=== PATIENT | male | born 1995 | race Caucasian/White ===

== ENCOUNTER 2017-03-10 18:36 | Emergency (ER) | payer OTHER ==
[~2017-03-10] VITALS: Ht 182.9 cm; Wt 88.6 kg
[2017-03-10 18:37] VITALS: BP 159/77
[2017-03-10] MEDS ORDERED: BACI500O74 EXT (19:48)
== END 2017-03-10 20:40 | disposition home or self-care (01) ==
LOC: M ED 18:36
DX: T22.011A Burn of unspecified degree of right forearm, initial encounter (principal); X10.2XXA Contact with fats and cooking oils, initial encounter; Y92.89 Other specified places as the place of occurrence of the external cause; Y93.89 Activity, other specified; Y99.8 Other external cause status

== ENCOUNTER 2017-05-21 13:39 | Inpatient (IN) | payer OTHER ==
[~2017-05-21] VITALS: Ht 182.9 cm; Wt 88.6 kg
[~2017-05-21 13:39] MED LIST: BACI500O74 EXT
[2017-05-21] MEDS ORDERED: VYVA60CA PO (13:55)
[2017-05-21 14:52] LABS: MEAN CORPUSCULAR HEMOGLOBIN 32.1 pg (27.0-33.0); MEAN CORPUSCULAR HGB CONC 36.4 g/dl (32.0-36.5); MEAN CORPUSCULAR VOLUME 88.2 fl (80.0-96.0); PLATELET COUNT, AUTOMATED 268 10^3/uL (150-450); RED CELL DISTRIBUTION WIDTH 12.2 % (11.5-14.5); WHITE BLOOD COUNT 9.2 10^3/uL (4.0-10.0)
[2017-05-21 15:10] LABS: METHADONE URINE NEGATIVE (NEGATIVE)
[2017-05-21 15:30] LABS: ALBUMIN 4.5 GM/DL (3.2-5.2); ALBUMIN/GLOBULIN RATIO 1.67 (1.00-1.93); ALKALINE PHOSPHATASE 88 U/L (45-117); ALT/SGPT 28 U/L (12-78); ANION GAP 7 MEQ/L (8-16); AST/SGOT 15 U/L (7-37); BILIRUBIN,DIRECT 0.1 MG/DL (0.0-0.2); BILIRUBIN,TOTAL 0.4 MG/DL (0.2-1.0); BLOOD UREA NITROGEN 12 MG/DL (7-18); CALCIUM LEVEL 9.1 MG/DL (8.5-10.1); CARBON DIOXIDE LEVEL 31 MEQ/L (21-32); CHLORIDE LEVEL 101 MEQ/L (98-107); CREATININE FOR GFR 1.14 MG/DL (0.70-1.30); GLOMERULAR FILTRATION RATE > 60.0 (>60); GLUCOSE, FASTING 86 MG/DL (70-105); POTASSIUM SERUM 3.7 MEQ/L (3.5-5.1); SODIUM LEVEL 139 MEQ/L (136-145); TOTAL PROTEIN 7.2 GM/DL (6.4-8.2)
[2017-05-21] MEDS ORDERED: NICOTINE 21MG/24HR 1 EA TRANSDERMAL TD ONE (16:45)
[2017-05-21] MEDS ORDERED: traZODone 50 MG TAB PO PRN (19:45)
[2017-05-21] MEDS ORDERED: ACETAMINOPHEN TAB 650MG DOSE (2X325MG) PO PRN (19:45)
[2017-05-21] MEDS ORDERED: MAALOX 30 ML SUSP *UDC PO PRN (19:45)
[2017-05-21] MEDS ORDERED: MOM 30ML SUSPENSION UDC PO PRN (19:45)
--- NOTE | 2017-05-22 08:59 | HPEPDOC ---
[facility] Medical History & Physical Date of Admission May 21, 2017 History and Physical PCP: [facility] ATTENDING: Dr. Alfredo Schuster HPI: 21yoM admitted to [facility] for unspecified depressive disorder, being medically examined today. No acute medical complaints today. Denies any fevers, chills, weakness, fatigue, ROUSE, CP, SOB, cough, palpitations, abdominal pain, N/V /D or changes in bowel or bladder habits. 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 ROS: As noted in HPI, otherwise 11pt ROS of systems reviewed and unremarkable. PE: GEN: 21yoM, appears stated age. Well-nourished, well developed. No acute distress. Alert and oriented x 3. Pleasant, interactive. HEENT: Normocephalic, atraumatic. Pupils are equal, round, and reactive to light. Extraocular movements are intact. No nystagmus appreciated. Sclera are nonicteric. Conjunctiva without injection. Nose midline. Nasal turbinates without bogginess. EACs both patent BL. TMs both visualized and nichols with good cone of light, no bulging or erythema. No facial asymmetry. Moist mucous membranes. Dentition fair. Pharynx pink and moist, no cobblestoning. Neck supple , trachea midline. No lymphadenopathy or thyromegaly appreciated. CHEST: Regular rate and rhythm, +S1, +S2 LUNGS: Clear to auscultation bilaterally. No wheezes, rales, or rhonchi. Breathing appears symmetric and easy. Patient is speaking in full sentences. No accessory muscle use. ABD: Round, soft, non-tender, non-distended. +Bowel sounds throughout. No rebound or guarding. No costovertebral angle tenderness. EXT: Pulses 2+ bilaterally dorsalis pedis and radial. No lower extremity edema appreciated. SKIN: [place], dry, warm. Capillary refill <2sec. No rashes. NEURO: Alert and oriented x 3. Cranial nerves III-XII are intact. No focal deficits appreciated. EKG: Pending. A&P: 21yoM admitted to [facility] for unspecified depressive disorder 1. Psych. Plan per Psychiatry. Obtain baseline EKG to assure the safety of psychiatric medications as they can prolong the QT interval. 2. Follow up with PCP on discharge. 3. Staff member Eduardo present throughout exam. Vital Signs Vital Signs Date Time Temp Pulse Resp B/P (MAP) Pulse Ox O2 Delivery O2 Flow Rate FiO2 05/21/17 19:31 98.2 55 16 135/78 (97) 99 Laboratory Data Labs 24H Laboratory Tests 2 05/21/17 14:24: Nucleated Red Blood Cells % (auto) 0.0, Anion Gap 7L, Glomerular Filtration Rate > 60.0, Calcium Level 9.1, Aspartate Amino Transf (AST/SGOT) 15, Alanine Aminotransferase (ALT/SGPT) 28, Alkaline Phosphatase 88, Total Bilirubin 0.4, Direct Bilirubin 0.1, Total Protein 7.2, Albumin 4.5, Albumin/Globulin Ratio 1.67, Thyroid Stimulating Hormone (TSH) 0.857, Salicylates Level < 1.7L, Acetaminophen Level < 2.0L, Ethyl Alcohol Level < 0.003 05/21/17 14:25: Urine Amphetamines Screen NEGATIVE, Urine Benzodiazepines Screen NEGATIVE, Urine Opiates Screen NEGATIVE, Urine Methadone Screen NEGATIVE, Urine Barbiturates Screen NEGATIVE, Urine Phencyclidine Screen NEGATIVE, Urine Cocaine Metabolite Screen NEGATIVE, Urine Cannabinoids Screen NEGATIVE CBC/BMP Laboratory Tests 05/21/17 14:24 Red Blood Count 5.42, Mean Corpuscular Volume 88.2, Mean Corpuscular Hemoglobin 32.1, Mean Corpuscular Hemoglobin Concent 36.4, Red Cell Distribution Width 12.2 Home Medications Scheduled (Vyvanse) 60 Mg Cap, 60 MG PO DAILY Allergies Coded Allergies: No Known Allergies (Unverified , 03/10/17) Shaneka Youngblood May 22, 2017 08:59
[2017-05-22] MEDS ORDERED: NICOTINE 21MG/24HR 1 EA TRANSDERMAL TD SCH (09:00)
[2017-05-22] MEDS ORDERED: VYVANSE 60 MG PO SCH (09:00)
[2017-05-22 11:43] VITALS: BP 138/69
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
[2017-05-23] MEDS ORDERED: INFLUENZA QUADRIVALENT PF VACCINE 0.5ML SYRINGE (90686) IM ONE (09:00)
== END 2017-05-22 13:30 | disposition home or self-care (01) | DRG 881 ==
LOC: M ED 13:39 → M ED INP 19:31 → M PSY 20:30
PROVIDERS: ADMIT Psychiatry & Neurology Psychiatry; ATTEND Psychiatry & Neurology Psychiatry
DX: F43.21 Adjustment disorder with depressed mood (principal); F90.9 Attention-deficit hyperactivity disorder, unspecified type; F17.200 Nicotine dependence, unspecified, uncomplicated; Z79.899 Other long term (current) drug therapy

== ENCOUNTER 2017-06-10 15:37 | Inpatient (IN) | payer OTHER ==
[~2017-06-10] VITALS: Ht 182.9 cm; Wt 90.0 kg
[~2017-06-10 15:37] MED LIST changes: +VYVA60CA PO
[2017-06-10] MEDS ORDERED: PROZ20CA11 PO (15:51)
[2017-06-10] MEDS ORDERED: NS 1,000 ML IV ONE ×3 (16:15→19:00)
[2017-06-10 16:23] LABS: BASO % 0.4 % (0.0-1.0); EOS # 0.1 10^3/uL (0.0-0.50); EOS % 0.5 % (0.0-3.0); IMMATURE GRANULOCYTE % 0.5 % (0-0); LYMPH % 21.1 % (24.0-44.0); MEAN CORPUSCULAR HEMOGLOBIN 31.6 pg (27.0-33.0); MEAN CORPUSCULAR HGB CONC 36.3 g/dl (32.0-36.5); MEAN CORPUSCULAR VOLUME 87.3 fl (80.0-96.0); MONO # 0.8 10^3/uL (0.0-0.8); MONO % 8.1 % (0.0-5.0); NEUTROPHILS # 6.4 10^3/uL (1.8-7.7); NEUTROPHILS % 69.4 % (36.0-66.0); PLATELET COUNT, AUTOMATED 287 10^3/uL (150-450); RED CELL DISTRIBUTION WIDTH 11.8 % (11.5-14.5); WHITE BLOOD COUNT 9.2 10^3/uL (4.0-10.0)
[2017-06-10 16:25] LABS: INR 0.95
[2017-06-10 16:27] LABS: VENOUS BASE EXCESS 1.4 (-2.0-2.0); VENOUS STANDARD HCO3 25.5 MEQ/L; VENOUS TOTAL CO2 27.6 MEQ/L (24.0-28.0)
[2017-06-10 16:36] LABS: ALBUMIN 4.1 GM/DL (3.2-5.2); ALBUMIN/GLOBULIN RATIO 1.32 (1.00-1.93); ALKALINE PHOSPHATASE 94 U/L (45-117); ALT/SGPT 27 U/L (12-78); ANION GAP 9 MEQ/L (8-16); AST/SGOT 11 U/L (7-37); BILIRUBIN,DIRECT < 0.1 MG/DL (0.0-0.2); BILIRUBIN,TOTAL 0.2 MG/DL (0.2-1.0); BLOOD UREA NITROGEN 15 MG/DL (7-18); CALCIUM LEVEL 9.3 MG/DL (8.5-10.1); CARBON DIOXIDE LEVEL 28 MEQ/L (21-32); CHLORIDE LEVEL 101 MEQ/L (98-107); CREATININE FOR GFR 1.11 MG/DL (0.70-1.30); GLOMERULAR FILTRATION RATE > 60.0 (>60); GLUCOSE, FASTING 106 MG/DL (70-105); POTASSIUM SERUM 3.6 MEQ/L (3.5-5.1); SODIUM LEVEL 138 MEQ/L (136-145); TOTAL PROTEIN 7.2 GM/DL (6.4-8.2)
[2017-06-10] MEDS ORDERED: CHARCOAL ACTIVATED LIQUID 25 GM/120 ML BTL PO ONE (16:45)
[2017-06-10] MEDS ORDERED: ONDANSETRON 4MG/2ML VIAL (J2405) IV ONE (18:30)
[2017-06-10 20:00] LABS: METHADONE URINE NEGATIVE (NEGATIVE)
[2017-06-10] MEDS ORDERED: MAALOX 30 ML SUSP *UDC PO PRN (21:15)
[2017-06-10] MEDS ORDERED: MOM 30ML SUSPENSION UDC PO PRN (21:15)
[2017-06-10] MEDS ORDERED: ACETAMINOPHEN TAB 650MG DOSE (2X325MG) PO PRN (21:15)
[2017-06-10] MEDS ORDERED: diphenhydrAMINE 50 MG CAP PO PRN (21:30)
[2017-06-10 22:35] VITALS: BP 122/63
--- NOTE | 2017-06-11 05:45 | ECGEPIP ---
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
[2017-06-11 06:40] VITALS: BP 111/53
--- NOTE | 2017-06-11 08:46 | HPEPDOC ---
[facility] Medical History & Physical Date of Admission Jun 10, 2017 History and Physical PCP: [facility] ATTENDING: Dr. Alfredo Schuster HPI: 21yoM admitted to [facility] for unspecified depressive disorder, being medically examined today. The patient was medically stabilized in the emergency department after taking approximately 20 Excedrin and 20 Benadryl. Poison control was consulted. The patient received IV fluids and charcoal in the emergency department. The patient states he noted some nausea and vomiting in the emergency department after taking the charcoal. Today he states he is feeling better. No acute medical complaints today. Denies any fevers, chills, weakness, fatigue , ROUSE, CP, SOB, cough, palpitations, abdominal pain, N/V/D or changes in bowel or bladder habits. PMHx: ADHD Depression Anxiety History of SI. 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 ROS: As noted in HPI, otherwise 11pt ROS of systems reviewed and unremarkable. PE: GEN: 21yoM, appears stated age. Well-nourished, well developed. No acute distress. Alert and oriented x 3. Pleasant, interactive. HEENT: Normocephalic, atraumatic. Pupils are equal, round, and reactive to light. Extraocular movements are intact. No nystagmus appreciated. Sclera are nonicteric. Conjunctiva without injection. Nose midline. Nasal turbinates without bogginess. EACs both patent BL. TMs both visualized and nichols with good cone of light, no bulging or erythema. No facial asymmetry. Moist mucous membranes. Dentition fair. Pharynx pink and moist, no cobblestoning. Neck supple , trachea midline. No lymphadenopathy or thyromegaly appreciated. CHEST: Regular rate and rhythm, +S1, +S2 LUNGS: Clear to auscultation bilaterally. No wheezes, rales, or rhonchi. Breathing appears symmetric and easy. Patient is speaking in full sentences. No accessory muscle use. ABD: Round, soft, non-tender, non-distended. +Bowel sounds throughout. No rebound or guarding. No costovertebral angle tenderness. EXT: Pulses 2+ bilaterally dorsalis pedis and radial. No lower extremity edema appreciated. SKIN: [place], dry, warm. Capillary refill <2sec. No rashes. NEURO: Alert and oriented x 3. Cranial nerves III-XII are intact. No focal deficits appreciated. EK06/10/17 SINUS RHYTHM INCOMPLETE RIGHT BUNDLE BRANCH BLOCK NO PRIORS FOR COMPARISON A&P: 21yoM admitted to [facility] for unspecified depressive disorder 1. Psych. Plan per Psychiatry. EKG on file. 2. Follow up with PCP on discharge. 3. Staff member Maurice present throughout exam. Vital Signs Vital Signs Date Time Temp Pulse Resp B/P (MAP) Pulse Ox O2 Delivery O2 Flow Rate FiO2 06/11/17 06:40 98.7 54 12 111/53 (72) 06/10/17 22:35 97 Room Air Laboratory Data Labs 24H Laboratory Tests 2 06/10/17 15:54: Immature Granulocyte % (Auto) 0.5H, White Blood Count 9.2, Red Blood Count 5.50 , Hemoglobin 17.4, Hematocrit 48.0, Mean Corpuscular Volume 87.3, Mean Corpuscular Hemoglobin 31.6, Mean Corpuscular Hemoglobin Concent 36.3, Red Cell Distribution Width 11.8, Platelet Count 287, Neutrophils (%) (Auto) 69.4H, Lymphocytes (%) (Auto) 21.1L, Monocytes (%) (Auto) 8.1H, Eosinophils (%) (Auto) 0.5, Basophils (%) (Auto) 0.4, Neutrophils # (Auto) 6.4, Lymphocytes # (Auto) 2.0, Monocytes # (Auto) 0.8, Eosinophils # (Auto) 0.1, Basophils # (Auto) 0.0, Immature Granulocyte # (Auto) 0.1H, Nucleated Red Blood Cells % (auto) 0.0, Prothrombin Time 12.8, Prothromb Time International Ratio 0.95, Blood Gas Bicarbonate Standard 25.5, Venous Blood pH 7.414, Venous Blood Partial Pressure CO2 42.0, Venous Blood Partial Pressure O2 55.0H, Venous Blood Total Carbon Dioxide 27.6, Venous Blood HCO3 26.3, Venous Blood Oxygen Saturation 91.0H, Venous Blood Base Excess 1.4, Anion Gap 9, Glomerular Filtration Rate > 60.0, Calcium Level 9.3, Aspartate Amino Transf (AST/SGOT) 11, Alanine Aminotransferase (ALT/SGPT) 27, Alkaline Phosphatase 94, Total Bilirubin 0.2, Direct Bilirubin < 0.1, Total Creatine Kinase 102, Total Protein 7.2, Albumin 4.1, Albumin/Globulin Ratio 1.32, Thyroid Stimulating Hormone (TSH) 1.440, Salicylates Level 29.3, Acetaminophen Level 71.4H, Ethyl Alcohol Level < 0.003 06/10/17 16:22: Bedside Glucose (Misc Panel) 118H 06/10/17 17:48: Salicylates Level 29.9, Acetaminophen Level 63.6H 06/10/17 19:26: Urine Appearance CLOUDYH, Urine Color YELLOW, Urine pH 7.0, Urine Specific [place] 1.016, Urine Protein NEGATIVE, Urine Glucose (UA) NEGATIVE, Urine Ketones NEGATIVE, Urine Urobilinogen 0.2, Urine Bilirubin NEGATIVE, Urine Leukocyte Esterase NEGATIVE, Urine Blood NEGATIVE, Urine Nitrite NEGATIVE, Urine WBC (Auto) 1, Urine RBC (Auto) 0, Urine Hyaline Casts (Auto) 0, Urine Bacteria (Auto) NEGATIVE, Urine Squamous Epithelial Cells 0, Urine Amorphous Sediment MODERATEH, Urine Mucus (Auto) SMALL, Urine Sperm (Auto) , Urine Amphetamines Screen NEGATIVE, Urine Benzodiazepines Screen NEGATIVE, Urine Opiates Screen NEGATIVE, Urine Methadone Screen NEGATIVE, Urine Barbiturates Screen NEGATIVE, Urine Phencyclidine Screen NEGATIVE, Urine Cocaine Metabolite Screen NEGATIVE, Urine Cannabinoids Screen NEGATIVE 06/10/17 20:51: Salicylates Level 22.6, Acetaminophen Level 40.9H CBC/BMP Laboratory Tests 06/10/17 15:54 Red Blood Count 5.50, Mean Corpuscular Volume 87.3, Mean Corpuscular Hemoglobin 31.6, Mean Corpuscular Hemoglobin Concent 36.3, Red Cell Distribution Width 11.8 , Neutrophils (%) (Auto) 69.4 H, Lymphocytes (%) (Auto) 21.1 L, Monocytes (%) ( Auto) 8.1 H, Eosinophils (%) (Auto) 0.5, Basophils (%) (Auto) 0.4, Neutrophils # (Auto) 6.4, Lymphocytes # (Auto) 2.0, Monocytes # (Auto) 0.8, Eosinophils # ( Auto) 0.1, Basophils # (Auto) 0.0 Home Medications Scheduled (Vyvanse) 60 Mg Cap, 60 MG PO DAILY Fluoxetine HCl (Prozac) 20 Mg Cap, 20 MG PO DAILY Allergies Coded Allergies: No Known Allergies (Unverified , 03/10/17) Shaneka Youngblood Jun 11, 2017 08:46
[2017-06-11] MEDS ORDERED: NICOTINE 21MG/24HR 1 EA TRANSDERMAL TD SCH (09:00)
[2017-06-11] MEDS: FLUoxetine 20 MG CAP PO SCH (09:09)
[2017-06-11] MEDS: NICOTINE 21MG/24HR 1 EA TRANSDERMAL TD SCH (09:09)
[2017-06-11] MEDS ORDERED: IBUPROFEN 400 MG TAB PO PRN (13:45)
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
[2017-06-11 18:00] VITALS: BP 137/69
[2017-06-12 06:31] VITALS: BP 130/60
[2017-06-12] MEDS: NICOTINE 21MG/24HR 1 EA TRANSDERMAL TD SCH (08:34)
[2017-06-12] MEDS: FLUoxetine 20 MG CAP PO SCH (08:34)
[2017-06-12] MEDS ORDERED: INFLUENZA QUADRIVALENT PF VACCINE 0.5ML SYRINGE (90686) IM ONE (09:00)
--- NOTE | 2017-06-12 17:46 | MHIPNPDOC ---
[facility] Progress Note Progress Note DATE OF SERVICE: 06/12/17 HISTORY: "When I took the pills I was really scared. I didn't plan it. I went to the bathroom and grabbed them. I was very anxious before I took them. I was smoking and I usually don't smoke" HISTORY OF THE PRESENT ILLNESS: As per ED report: "Pt presented to ED after taking Benadryl and Tylenol, unknown amount as a SI attempt. Pt reported overdosed at home. Told his Dad after Pt started feeling the effects from overdosing. Dad called the [facility]. 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 Pt stated "lot of overwhelming; work, finances, GF (of 1 yr) broke up with him a month ago. Pt reported increased anxiety since relationship ended, came overwhelming, felt like had no choice. Pt stated fleeting +SI thoughts since relationship ended, but constant +SI thought for the last week. Pt stated" I have never been like this", believe their is an issue with the medications". VITAL SIGNS: See below. NEW TEST RESULTS: N/A CURRENT MEDICATIONS: See below. MENTAL STATUS EXAMINATION: Patient is a 21 year old male, who is alert, cooperative, good eye contact, fairly groomed with good hygiene Speech: Is Normal in rate, tone and volume. Language skills are Good. Thought processes including: Intact. Thought content: Anxious thoughts about his present situation. Abstract reasoning, and computation: Fair Description of associations: Good. Description of abnormal or psychotic thoughts: Denies SI/ HI, enies a/V hallucinations, denies thought delusions Judgment: Limited Insight: Limited Orientation: Oriented x 3 Recent and remote memory: Intact Attention span and concentration: Fair Language: Normal Fund of knowledge: Adequate Mood: Anxious Affect: Anxious DIAGNOSES: 1. Major Depressive Disorder, severe, single episode ASSESSMENT: Patient is very depressed amd anxious. he has been without his ADHd medication, Vyvance, but he has accepted to start using Strattera 40 mgs. Po QAM MANAGEMENT PLAN: Will continue with the same treatment plan. 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 TIME SPENT: 30 minutes. Vital Signs Vital Signs Date Time Temp Pulse Resp B/P (MAP) Pulse Ox O2 Delivery O2 Flow Rate FiO2 06/12/17 06:31 99.9 58 18 130/60 (83) 06/11/17 18:00 Room Air 06/10/17 22:35 97 Current Medications Current Medications Acetaminophen (Tylenol Tab) 650 mg Q6HP PRN PO HEADACHE or DISCOMFORT; Start 06/10/17 at 21:15; Stop 07/10/17 at 21:14; Status Cancel Al Hydrox/Mg Hydrox/Simethicone (Mylanta) 30 ml Q4HP PRN PO HEARTBURN/ INDIGESTION; Start 06/10/17 at 21:15; Stop 07/10/17 at 21:14 Diphenhydramine HCl (Benadryl) 50 mg Q6HP PRN PO ANXIETY/AGITATION; Start at 21:30; Stop 07/10/17 at 21:29 Fluoxetine HCl (PROzac) 20 mg DAILY PO Last administered on 06/12/17 08:34; Start 06/11/17 at 09:00; Stop 07/11/17 at 08:59 Home Med (Med Rec Complete!) ASDIRECTED XX ; Start 06/10/17 at 18:00; Stop at 18:00; Status DC Ibuprofen (Advil) 400 mg Q6HP PRN PO PAIN; Start 06/11/17 at 13:45; Stop at 13:44 Magnesium Hydroxide (Milk Of Magnesia) 30 ml DAILYPRN PRN PO CONSTIPATION; Start 06/10/17 at 21:15; Stop 07/10/17 at 21:14 Nicotine (Nicoderm Cq 21mg) 1 patch DAILY TD ; Start 06/11/17 at 09:00; Stop 06/11/17 at 09:00; Status DC Nicotine (Nicoderm Cq 21mg) 1 patch DAILY TD Last administered on 06/12/17 08 :34; Start 06/11/17 at 09:00; Stop 07/11/17 at 08:59 Trazodone HCl (Desyrel) 50 mg QHSP PRN PO INSOMNIA; Start 06/10/17 at 21:15; Stop 07/10/17 at 21:14 Allergies Coded Allergies: No Known Allergies (Unverified , 03/10/17) TEETEE MIRANDA MD Jun 12, 2017 17:46
[2017-06-12 18:15] VITALS: BP 131/88
[2017-06-12] MEDS: hydrOXYzine 25 MG TAB PO SCH ×2 (18:38→23:41)
[2017-06-12] MEDS: ATOMOXETINE HCL 40 MG CAP (STRATTERA) PO SCH (18:38)
[2017-06-13 06:46] VITALS: BP 116/56
[2017-06-13] MEDS: NICOTINE 21MG/24HR 1 EA TRANSDERMAL TD SCH (08:19)
[2017-06-13] MEDS: ATOMOXETINE HCL 40 MG CAP (STRATTERA) PO SCH (08:20)
[2017-06-13] MEDS: hydrOXYzine 25 MG TAB PO SCH ×4 (08:20→21:19)
[2017-06-13] MEDS: SERTRALINE HCL 50 MG TAB PO SCH (08:20)
[2017-06-13 20:40] VITALS: BP 123/61
[2017-06-14 06:38] VITALS: BP 115/58
[2017-06-14 06:41] VITALS: BP 115/58
[2017-06-14] MEDS: NICOTINE 21MG/24HR 1 EA TRANSDERMAL TD SCH (08:07)
[2017-06-14] MEDS: hydrOXYzine 25 MG TAB PO SCH ×4 (08:07→20:20)
[2017-06-14] MEDS: ATOMOXETINE HCL 40 MG CAP (STRATTERA) PO SCH (08:07)
[2017-06-14] MEDS: SERTRALINE HCL 50 MG TAB PO SCH (08:07)
--- NOTE | 2017-06-14 11:50 | MHIPN ---
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 MEDICATIONS: - Zoloft 50 mg by mouth in the morning - trazodone 50 mg by mouth at night as needed for insomnia SUBJECTIVE: "I am feeling about the same." OBJECTIVE: No major changes from yesterday. The patient continues depressed with sad and restricted facial expression and psychomotor retardation. The patient is interacting minimally with other patients and staff. There is no evidence of psychotic symptoms. No auditory or visual hallucinations or delusions. The patient appears to be tolerating the medication well. MENTAL STATUS EXAMINATION: The patient is dressed in [facility]. Patient is cooperative. Has fair eye contact. Speech is soft and monotone. Mood is anxious and depressed. Affect is restricted. There is no evidence of delusions or hallucinations. Memory, attention and concentration are fair. The patient is fully oriented. Associations are intact. Thinking is logical. Thought content is appropriate. The patient is able to contract for safety while in the hospital. Insight and judgment limited. DIAGNOSES: 1. Depression. 2. Suicidal ideation. PLAN: Continue Zoloft 50 mg by mouth in the morning. Continue trazodone 50 mg by mouth at night as needed for insomnia. Continue medication management, individual and group therapy.
--- NOTE | 2017-06-14 12:38 | MHIPNPDOC ---
[facility] Progress Note Progress Note DATE OF SERVICE: 06/14/17 HISTORY: "When I took the pills I was really scared. I didn't plan it. I went to the bathroom and grabbed them. I was very anxious before I took them. I was smoking and I usually don't smoke" HISTORY OF THE PRESENT ILLNESS: As per ED report: "Pt presented to ED after taking Benadryl and Tylenol, unknown amount as a SI attempt. Pt reported overdosed at home. Told his Dad after Pt started feeling the effects from overdosing. Dad called the [facility]. 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 Pt stated "lot of overwhelming; work, finances, GF (of 1 yr) broke up with him a month ago. Pt reported increased anxiety since relationship ended, came overwhelming, felt like had no choice. Pt stated fleeting +SI thoughts since relationship ended, but constant +SI thought for the last week. Pt stated" I have never been like this", believe their is an issue with the medications". Today, 06/14/17 says he felt a little sluggish today and he felt the same way yesterday. He says he feels "robotic" but he will take "robotic with no anxiety " over anxiety. VITAL SIGNS: See below. NEW TEST RESULTS: N/A CURRENT MEDICATIONS: See below. MENTAL STATUS EXAMINATION: Patient is a 21 year old male, who is alert, cooperative, good eye contact, fairly groomed with good hygiene Speech: Spontaneous and fluent Language skills are Good. Thought processes including: coherent Thought content: focused on his skilled nursing treatment Abstract reasoning, and computation: Fair Description of associations: Good. Description of abnormal or psychotic thoughts: Denies SI/ HI, denies a/V hallucinations, denies thought delusions Judgment: Limited Insight: Limited Orientation: Oriented x 3 Recent and remote memory: Intact Attention span and concentration: Good Language: Normal Fund of knowledge: Adequate Mood: Less anxious and less depressed Affect: Less anxious and less depressed DIAGNOSES: 1. Major Depressive Disorder, severe, single episode ASSESSMENT: Patient is less depressed an anxious. He has emotion "numbness', he doesn't feel sad, nor anxious and he was able to feel happiness yesterday when his family visited yesterday for Thanksgiving. MANAGEMENT PLAN: Will continue with the same treatment plan. Patient needs to go for a higher level of care, skilled nursing for Depression. Vital Signs Vital Signs Date Time Temp Pulse Resp B/P (MAP) Pulse Ox O2 Delivery O2 Flow Rate FiO2 06/14/17 06:41 98.7 66 14 115/58 (77) 06/13/17 06:46 Room Air 06/10/17 22:35 97 Current Medications Current Medications Acetaminophen (Tylenol Tab) 650 mg Q6HP PRN PO HEADACHE or DISCOMFORT; Start 06/10/17 at 21:15; Stop 07/10/17 at 21:14; Status Cancel Al Hydrox/Mg Hydrox/Simethicone (Mylanta) 30 ml Q4HP PRN PO HEARTBURN/ INDIGESTION; Start 06/10/17 at 21:15; Stop 07/10/17 at 21:14 Atomoxetine HCl (Strattera (Atomoxetine)) 40 mg QAM PO Last administered on 08:07; Start 06/12/17 at 09:00; Stop 07/12/17 at 08:59 Diphenhydramine HCl (Benadryl) 50 mg Q6HP PRN PO ANXIETY/AGITATION; Start at 21:30; Stop 07/10/17 at 21:29; Status Cancel Fluoxetine HCl (PROzac) 20 mg DAILY PO Last administered on 06/12/17 08:34; Start 06/11/17 at 09:00; Stop 06/12/17 at 18:11; Status DC Home Med (Med Rec Complete!) ASDIRECTED XX ; Start 06/10/17 at 18:00; Stop at 18:00; Status DC Hydroxyzine HCl (Atarax) 75 mg QID PO Last administered on 06/14/17 12:09; Start 06/12/17 at 17:00; Stop 07/12/17 at 16:59 Ibuprofen (Advil) 400 mg Q6HP PRN PO PAIN; Start 06/11/17 at 13:45; Stop at 13:44 Magnesium Hydroxide (Milk Of Magnesia) 30 ml DAILYPRN PRN PO CONSTIPATION; Start 06/10/17 at 21:15; Stop 07/10/17 at 21:14 Nicotine (Nicoderm Cq 21mg) 1 patch DAILY TD ; Start 06/11/17 at 09:00; Stop 06/11/17 at 09:00; Status DC Nicotine (Nicoderm Cq 21mg) 1 patch DAILY TD Last administered on 06/14/17 08 :07; Start 06/11/17 at 09:00; Stop 07/11/17 at 08:59 Sertraline HCl (Zoloft) 50 mg QAM PO Last administered on 06/14/17 08:07; Start 06/13/17 at 09:00; Stop 07/13/17 at 08:59 Trazodone HCl (Desyrel) 50 mg QHSP PRN PO INSOMNIA; Start 06/10/17 at 21:15; Stop 07/10/17 at 21:14 Allergies Coded Allergies: No Known Allergies (Unverified , 03/10/17) TEETEE MIRANDA MD Jun 14, 2017 12:38
[2017-06-14 18:00] VITALS: BP 137/64
[2017-06-15 06:36] VITALS: BP 123/56
[2017-06-15] MEDS: ATOMOXETINE HCL 40 MG CAP (STRATTERA) PO SCH (08:34)
[2017-06-15] MEDS: hydrOXYzine 25 MG TAB PO SCH ×4 (08:34→20:23)
[2017-06-15] MEDS: SERTRALINE HCL 50 MG TAB PO SCH (08:34)
[2017-06-15] MEDS: NICOTINE 21MG/24HR 1 EA TRANSDERMAL TD SCH (08:34)
[2017-06-15 18:00] VITALS: BP 140/64
[2017-06-16 06:43] VITALS: BP 140/63
[2017-06-16] MEDS: NICOTINE 21MG/24HR 1 EA TRANSDERMAL TD SCH (08:07)
[2017-06-16] MEDS: hydrOXYzine 25 MG TAB PO SCH ×4 (08:07→20:04)
[2017-06-16] MEDS: ATOMOXETINE HCL 40 MG CAP (STRATTERA) PO SCH (08:07)
[2017-06-16] MEDS: SERTRALINE HCL 50 MG TAB PO SCH (08:07)
[2017-06-16 18:00] VITALS: BP 141/63
[2017-06-16] MEDS: traZODone 50 MG TAB PO PRN (22:10)
[2017-06-17 06:00] VITALS: BP 120/65
[2017-06-17] MEDS: ATOMOXETINE HCL 40 MG CAP (STRATTERA) PO SCH (08:31)
[2017-06-17] MEDS: NICOTINE 21MG/24HR 1 EA TRANSDERMAL TD SCH (08:31)
[2017-06-17] MEDS: hydrOXYzine 25 MG TAB PO SCH ×4 (08:31→20:46)
[2017-06-17] MEDS: SERTRALINE HCL 50 MG TAB PO SCH (08:31)
[2017-06-17 18:10] VITALS: BP 136/79
--- NOTE | 2017-06-17 18:57 | MHIPNPDOC ---
[facility] Progress Note Progress Note DATE OF SERVICE: HISTORY: "When I took the pills I was really scared. I didn't plan it. I went to the bathroom and grabbed them. I was very anxious before I took them. I was smoking and I usually don't smoke" HISTORY OF THE PRESENT ILLNESS: As per ED report: "Pt presented to ED after taking Benadryl and Tylenol, unknown amount as a SI attempt. Pt reported overdosed at home. Told his Dad after Pt started feeling the effects from overdosing. Dad called the [facility]. 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 Pt stated "lot of overwhelming; work, finances, GF (of 1 yr) broke up with him a month ago. Pt reported increased anxiety since relationship ended, came overwhelming, felt like had no choice. Pt stated fleeting +SI thoughts since relationship ended, but constant +SI thought for the last week. Pt stated" I have never been like this", believe their is an issue with the medications". VITAL SIGNS: See below. NEW TEST RESULTS: N/A CURRENT MEDICATIONS: See below. MENTAL STATUS EXAMINATION: Patient is a 21 year old male, who is alert, cooperative, good eye contact, fair hygiene Speech: Normal in tone, volume and rate Language skills are Good. Thought processes including: Intact Thought content: focused on his halfway treatment, he feels that the has betrayed him because they "forced me to go to [place] and they haven't even come and see me". Abstract reasoning, and computation: Fair Description of associations: Good. Description of abnormal or psychotic thoughts: Denies SI/ HI, denies a/V hallucinations, denies thought delusions Judgment: Poor Insight: Poor Orientation: Oriented x 3 Recent and remote memory: Intact Attention span and concentration: Fair Language: Normal Fund of knowledge: Adequate Mood: Anxious Affect: Anxious DIAGNOSES: 1. Major Depressive Disorder, severe, single episode ASSESSMENT: Patient has cognitive distortions, he sees everything in black and white, has very negative thoughts about going to [place], to [facility]. At the end of his visit, he said he knows he's been trying to sabotage himself. from receiving the proper care. He admitted being very depressed during his first three years of [employer]. he felt lonely, depressed, anxious, he cheated on his longtime girlfriend of 6 years. he felt guilty and he kept calling his mother because he felt very bad. MANAGEMENT PLAN: Will continue with the same treatment plan. 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 Vital Signs Vital Signs Date Time Temp Pulse Resp B/P (MAP) Pulse Ox O2 Delivery O2 Flow Rate FiO2 06/17/17 18:10 98.8 80 16 136/79 (98) 06/16/17 18:00 97 Room Air Current Medications Current Medications Acetaminophen (Tylenol Tab) 650 mg Q6HP PRN PO HEADACHE or DISCOMFORT; Start 06/10/17 at 21:15; Stop 07/10/17 at 21:14; Status Cancel Al Hydrox/Mg Hydrox/Simethicone (Mylanta) 30 ml Q4HP PRN PO HEARTBURN/ INDIGESTION; Start 06/10/17 at 21:15; Stop 07/10/17 at 21:14 Atomoxetine HCl (Strattera (Atomoxetine)) 40 mg QAM PO Last administered on 08:31; Start 06/12/17 at 09:00; Stop 07/12/17 at 08:59 Diphenhydramine HCl (Benadryl) 50 mg Q6HP PRN PO ANXIETY/AGITATION; Start at 21:30; Stop 07/10/17 at 21:29; Status Cancel Fluoxetine HCl (PROzac) 20 mg DAILY PO Last administered on 06/12/17 08:34; Start 06/11/17 at 09:00; Stop 06/12/17 at 18:11; Status DC Home Med (Med Rec Complete!) ASDIRECTED XX ; Start 06/10/17 at 18:00; Stop at 18:00; Status DC Hydroxyzine HCl (Atarax) 75 mg QID PO Last administered on 06/17/17 17:12; Start 06/12/17 at 17:00; Stop 07/12/17 at 16:59 Ibuprofen (Advil) 400 mg Q6HP PRN PO PAIN; Start 06/11/17 at 13:45; Stop at 13:44 Magnesium Hydroxide (Milk Of Magnesia) 30 ml DAILYPRN PRN PO CONSTIPATION; Start 06/10/17 at 21:15; Stop 07/10/17 at 21:14 Nicotine (Nicoderm Cq 21mg) 1 patch DAILY TD ; Start 06/11/17 at 09:00; Stop 06/11/17 at 09:00; Status DC Nicotine (Nicoderm Cq 21mg) 1 patch DAILY TD Last administered on 06/17/17 08 :31; Start 06/11/17 at 09:00; Stop 07/11/17 at 08:59 Sertraline HCl (Zoloft) 50 mg QAM PO Last administered on 06/17/17 08:31; Start 06/13/17 at 09:00; Stop 07/13/17 at 08:59 Trazodone HCl (Desyrel) 50 mg QHSP PRN PO INSOMNIA Last administered on 22:10; Start 06/10/17 at 21:15; Stop 07/10/17 at 21:14 Allergies Coded Allergies: No Known Allergies (Unverified , 03/10/17) TEETEE MIRANDA MD Jun 17, 2017 18:57
[2017-06-17] MEDS: traZODone 50 MG TAB PO PRN (20:46)
[2017-06-18 06:51] VITALS: BP 108/59
[2017-06-18] MEDS: NICOTINE 21MG/24HR 1 EA TRANSDERMAL TD SCH (08:53)
[2017-06-18] MEDS: ATOMOXETINE HCL 40 MG CAP (STRATTERA) PO SCH (08:53)
[2017-06-18] MEDS: hydrOXYzine 25 MG TAB PO SCH ×4 (08:53→21:59)
[2017-06-18] MEDS: SERTRALINE HCL 25 MG TABLET PO SCH (08:54)
--- NOTE | 2017-06-18 17:26 | MHIPNPDOC ---
[facility] Progress Note Progress Note DATE OF SERVICE: 06/18/17 HISTORY: "When I took the pills I was really scared. I didn't plan it. I went to the bathroom and grabbed them. I was very anxious before I took them. I was smoking and I usually don't smoke" HISTORY OF THE PRESENT ILLNESS: As per ED report: "Pt presented to ED after taking Benadryl and Tylenol, unknown amount as a SI attempt. Pt reported overdosed at home. Told his Dad after Pt started feeling the effects from overdosing. Dad called the [facility]. 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 Pt stated "lot of overwhelming; work, finances, GF (of 1 yr) broke up with him a month ago. Pt reported increased anxiety since relationship ended, came overwhelming, felt like had no choice. Pt stated fleeting +SI thoughts since relationship ended, but constant +SI thought for the last week. Pt stated" I have never been like this", believe their is an issue with the medications". Today, the patient says he is very anxious because of his restraining order and Court. He was told the police went searching for him at his apartment because he never showed up in Court yesterday and he thinks a letter might have not been sent from the Hospital. VITAL SIGNS: See below. NEW TEST RESULTS: N/A CURRENT MEDICATIONS: See below. MENTAL STATUS EXAMINATION: Patient is a 21 year old male, who is alert, cooperative, good eye contact, fair hygiene Speech: Spontaneous and fluent Language skills are Good. Thought processes including: Intact Thought content: focused on his legal problems. Anxious thoughts. Abstract reasoning, and computation: Good Description of associations: Good. Description of abnormal or psychotic thoughts: Denies SI/ HI, denies a/V hallucinations, denies thought delusions Judgment: Poor Insight: Poor Orientation: Oriented x 3 Recent and remote memory: Intact Attention span and concentration: Fair Language: Normal Fund of knowledge: Adequate Mood: Anxious Affect: Anxious DIAGNOSES: 1. Major Depressive Disorder, severe, single episode ASSESSMENT: Patient continues to be anxious, this time because he missed his Court day. i started him on Ativan 1 mg. PO Q4H PRN for anxiety. MANAGEMENT PLAN: Will continue with the same treatment plan. 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 Vital Signs Vital Signs Date Time Temp Pulse Resp B/P (MAP) Pulse Ox O2 Delivery O2 Flow Rate FiO2 06/18/17 06:51 98.2 65 14 108/59 (75) Room Air 06/16/17 18:00 97 Current Medications Current Medications Acetaminophen (Tylenol Tab) 650 mg Q6HP PRN PO HEADACHE or DISCOMFORT; Start 06/10/17 at 21:15; Stop 07/10/17 at 21:14; Status Cancel Al Hydrox/Mg Hydrox/Simethicone (Mylanta) 30 ml Q4HP PRN PO HEARTBURN/ INDIGESTION; Start 06/10/17 at 21:15; Stop 07/10/17 at 21:14 Atomoxetine HCl (Strattera (Atomoxetine)) 40 mg QAM PO Last administered on 08:53; Start 06/12/17 at 09:00; Stop 07/12/17 at 08:59 Diphenhydramine HCl (Benadryl) 50 mg Q6HP PRN PO ANXIETY/AGITATION; Start at 21:30; Stop 07/10/17 at 21:29; Status Cancel Fluoxetine HCl (PROzac) 20 mg DAILY PO Last administered on 06/12/17 08:34; Start 06/11/17 at 09:00; Stop 06/12/17 at 18:11; Status DC Home Med (Med Rec Complete!) ASDIRECTED XX ; Start 06/10/17 at 18:00; Stop at 18:00; Status DC Hydroxyzine HCl (Atarax) 75 mg QID PO Last administered on 06/18/17 17:04; Start 06/12/17 at 17:00; Stop 07/12/17 at 16:59 Ibuprofen (Advil) 400 mg Q6HP PRN PO PAIN; Start 06/11/17 at 13:45; Stop at 13:44 Magnesium Hydroxide (Milk Of Magnesia) 30 ml DAILYPRN PRN PO CONSTIPATION; Start 06/10/17 at 21:15; Stop 07/10/17 at 21:14 Nicotine (Nicoderm Cq 21mg) 1 patch DAILY TD ; Start 06/11/17 at 09:00; Stop 11/21/17 at 09:00; Status DC Nicotine (Nicoderm Cq 21mg) 1 patch DAILY TD Last administered on 06/18/17 08 :53; Start 06/11/17 at 09:00; Stop 07/11/17 at 08:59 Sertraline HCl (Zoloft) 50 mg QAM PO Last administered on 06/17/17 08:31; Start 06/13/17 at 09:00; Stop 06/17/17 at 19:09; Status DC Sertraline HCl (Zoloft) 75 mg QAM PO Last administered on 06/18/17 08:54; Start 06/18/17 at 09:00; Stop 07/18/17 at 08:59 Trazodone HCl (Desyrel) 50 mg QHSP PRN PO INSOMNIA Last administered on 20:46; Start 06/10/17 at 21:15; Stop 07/10/17 at 21:14 Allergies Coded Allergies: No Known Allergies (Unverified , 03/10/17) TEETEE MIRANDA MD Jun 18, 2017 17:26
[2017-06-18] MEDS: LORazepam 1 MG TAB PO PRN ×2 (17:44→21:59)
[2017-06-18 18:00] VITALS: BP 138/77
[2017-06-18] MEDS: traZODone 50 MG TAB PO PRN (21:59)
[2017-06-19 06:33] VITALS: BP 97/55
[2017-06-19] MEDS: LORazepam 1 MG TAB PO PRN ×2 (08:30→14:40)
[2017-06-19] MEDS: NICOTINE 21MG/24HR 1 EA TRANSDERMAL TD SCH (08:30)
[2017-06-19] MEDS: SERTRALINE HCL 25 MG TABLET PO SCH (08:30)
[2017-06-19] MEDS: hydrOXYzine 25 MG TAB PO SCH ×4 (08:30→20:23)
[2017-06-19] MEDS: ATOMOXETINE HCL 40 MG CAP (STRATTERA) PO SCH (08:30)
[2017-06-19 18:00] VITALS: BP 138/70
--- NOTE | 2017-06-19 20:34 | MHIPNPDOC ---
[facility] Progress Note Progress Note DATE OF SERVICE: 06/19/17 HISTORY: "When I took the pills I was really scared. I didn't plan it. I went to the bathroom and grabbed them. I was very anxious before I took them. I was smoking and I usually don't smoke" HISTORY OF THE PRESENT ILLNESS: As per ED report: "Pt presented to ED after taking Benadryl and Tylenol, unknown amount as a SI attempt. Pt reported overdosed at home. Told his Dad after Pt started feeling the effects from overdosing. Dad called the [facility]. 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 Pt stated "lot of overwhelming; work, finances, GF (of 1 yr) broke up with him a month ago. Pt reported increased anxiety since relationship ended, came overwhelming, felt like had no choice. Pt stated fleeting +SI thoughts since relationship ended, but constant +SI thought for the last week. Pt stated" I have never been like this", believe their is an issue with the medications". Today, the patient says he is ready to go to [place], he feels less stressed out because the Court hearing is going to be postponed because he is going to [facility] tomorrow. He hopes his ex girlfriend reconsiders the Restraining Order because he doesn't think he has damaged her the way she perveives he has and the way she has reported it in order to obtain the restraining order. VITAL SIGNS: See below. NEW TEST RESULTS: N/A CURRENT MEDICATIONS: See below. MENTAL STATUS EXAMINATION: Patient is a 21 year old male, who is alert, cooperative, good eye contact, fair hygiene Speech> Normal in tone, rate and volume Language skills are Good. Thought processes including: Logical, linear Thought content: goal directed, brighter and yamilet anxious compared to yesterday Abstract reasoning, and computation: Good Description of associations: Good. Description of abnormal or psychotic thoughts: Denies SI/ HI, denies a/V hallucinations, denies thought delusions Judgment: Improving Insight: Improving Orientation: Oriented x 3 Recent and remote memory: Intact Attention span and concentration: Fair Language: Normal Fund of knowledge: Adequate Mood:Euthymic Affect: Euthymic DIAGNOSES: 1. Major Depressive Disorder, severe, single episode ASSESSMENT: patient is feeling well today, he is less anxious, his mood is brighter and he feels optimistic about the future. he is goal directed and he seems to have recovered a sense of direction in life. MANAGEMENT PLAN: Will continue with the same treatment plan. 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 TIME SPENT: 20 minutes. Vital Signs Vital Signs Date Time Temp Pulse Resp B/P (MAP) Pulse Ox O2 Delivery O2 Flow Rate FiO2 06/19/17 18:00 98.4 90 18 138/70 (92) 06/18/17 06:51 Room Air 06/16/17 18:00 97 Current Medications Current Medications Acetaminophen (Tylenol Tab) 650 mg Q6HP PRN PO HEADACHE or DISCOMFORT; Start 06/10/17 at 21:15; Stop 07/10/17 at 21:14; Status Cancel Al Hydrox/Mg Hydrox/Simethicone (Mylanta) 30 ml Q4HP PRN PO HEARTBURN/ INDIGESTION; Start 06/10/17 at 21:15; Stop 07/10/17 at 21:14 Atomoxetine HCl (Strattera (Atomoxetine)) 40 mg QAM PO Last administered on 08:30; Start 06/12/17 at 09:00; Stop 07/12/17 at 08:59 Diphenhydramine HCl (Benadryl) 50 mg Q6HP PRN PO ANXIETY/AGITATION; Start at 21:30; Stop 07/10/17 at 21:29; Status Cancel Fluoxetine HCl (PROzac) 20 mg DAILY PO Last administered on 06/12/17 08:34; Start 06/11/17 at 09:00; Stop 06/12/17 at 18:11; Status DC Home Med (Med Rec Complete!) ASDIRECTED XX ; Start 06/10/17 at 18:00; Stop at 18:00; Status DC Hydroxyzine HCl (Atarax) 75 mg QID PO Last administered on 06/19/17 20:23; Start 06/12/17 at 17:00; Stop 07/12/17 at 16:59 Ibuprofen (Advil) 400 mg Q6HP PRN PO PAIN; Start 06/11/17 at 13:45; Stop at 13:44 Lorazepam (Ativan) 1 mg Q4HP PRN PO ANXIETY Last administered on 06/19/17 14: 40; Start 06/18/17 at 17:15; Stop 06/25/17 at 17:14 Magnesium Hydroxide (Milk Of Magnesia) 30 ml DAILYPRN PRN PO CONSTIPATION; Start 06/10/17 at 21:15; Stop 07/10/17 at 21:14 Nicotine (Nicoderm Cq 21mg) 1 patch DAILY TD ; Start 06/11/17 at 09:00; Stop 06/11/17 at 09:00; Status DC Nicotine (Nicoderm Cq 21mg) 1 patch DAILY TD Last administered on 06/19/17 08 :30; Start 06/11/17 at 09:00; Stop 07/11/17 at 08:59 Sertraline HCl (Zoloft) 50 mg QAM PO Last administered on 06/17/17 08:31; Start 06/13/17 at 09:00; Stop 06/17/17 at 19:09; Status DC Sertraline HCl (Zoloft) 75 mg QAM PO Last administered on 06/19/17 08:30; Start 06/18/17 at 09:00; Stop 07/18/17 at 08:59 Trazodone HCl (Desyrel) 50 mg QHSP PRN PO INSOMNIA Last administered on 21:59; Start 06/10/17 at 21:15; Stop 07/10/17 at 21:14 Allergies Coded Allergies: No Known Allergies (Unverified , 03/10/17) TEETEE MIRANDA MD Jun 19, 2017 20:34
[2017-06-19] MEDS ORDERED: SERT25TA PO (20:38)
[2017-06-19] MEDS ORDERED: TRAZO50TA PO (20:38)
[2017-06-19] MEDS ORDERED: ATOM40CA PO (20:38)
[2017-06-19] MEDS: traZODone 50 MG TAB PO PRN (21:21)
[2017-06-20 06:50] VITALS: BP 115/65
[2017-06-20] MEDS: ATOMOXETINE HCL 40 MG CAP (STRATTERA) PO SCH (08:21)
[2017-06-20] MEDS: hydrOXYzine 25 MG TAB PO SCH (08:21)
[2017-06-20] MEDS: SERTRALINE HCL 25 MG TABLET PO SCH (08:21)
[2017-06-20] MEDS: NICOTINE 21MG/24HR 1 EA TRANSDERMAL TD SCH (08:39)
[2017-06-20] MEDS: LORazepam 1 MG TAB PO PRN (09:56)
--- NOTE | 2017-06-20 10:37 | MHDSPDOC ---
[facility] Discharge Summary Discharge Summary DATE OF ADMISSION: Jun 10, 2017 at 21:15 DATE OF DISCHARGE: May DISCHARGE DIAGNOSES: 1. Major Depressive Disorder, severe, single episode 2. Borderline Personality disorder REASON FOR ADMISSION: "When I took the pills I was really scared. I didn't plan it. I went to the bathroom and grabbed them. I was very anxious before I took them. I was smoking and I usually don't smoke" History of Present Illness HISTORY OF THE PRESENT ILLNESS: As per ED report: "Pt presented to ED after taking Benadryl and Tylenol, unknown amount as a SI attempt. Pt reported overdosed at home. Told his Dad after Pt started feeling the effects from overdosing. Dad called the Power. 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 Pt stated "lot of overwhelming; work, finances, GF (of 1 yr) broke up with him a month ago. Pt reported increased anxiety since relationship ended, came overwhelming, felt like had no choice. Pt stated fleeting +SI thoughts since relationship ended, but constant +SI thought for the last week. Pt stated" I have never been like this", believe their is an issue with the medications". CONSULTANTS INVOLVED: None TREATMENT AND PROGRESS ON THE UNIT : Patient had available evolution, he had a good response to medications thoughts last week he complained of being too anxious and he thought it was because he used to take medications for ADHD and he was not taking them. In fact the patient was taking Vyvanse but that medication is not available at the hospital so one of the staff nurses and myself talked to him about using Strattera and I also discussed with him the fact that Prozac was probably not the best antidepressant for him because it can make people more anxious a little bit more anxious or even cause insomnia, therefore I started him on Zoloft and 2 days later he complained of feeling " robotic". I explained some people felt numb, without emotions after starting antidepressants. Patient's mood has been up and down and his life stressors have a lot to do with it. The fact that he had a restraining order and he had to go to court was very stressing and painful. He is still mourning a failed relationship with his ex-girlfriend who was the person who requested the restraining order. He said he couldn't believe her words, that everything that he read in the restraining order, for him, was a lie. He blamed the ex- girlfriend's mother for those words and he thought his ex-girlfriend was not capable of saying all those things about him. He blamed his ex-girlfriend's mother for many of the problems that they have in their relationship, he felt guilty, worthless, helpless, hopeless. His levels of anxiety were extremely high , but he kept denying suicidal and homicidal thoughts and he denied auditory and visual hallucinations as he denied thought delusions. 2 days ago his mother told him that the police had been searched and his apartment and he panicked but then he realized it was because he didn't go to court, and the day he was supposed to go was a Saturday. He said he had told somebody at the hospital that he had back court today but he said it until Saturday and it was too late to send a letter. Fortunately the police were searching his apartment because they know his and they were worried he was going to have weapons at home. Yesterday he was a little bit calmer because he realized that the court date has been postponed because he is going to [place] [facility] and they will have to wait. He also was worried about making payments on line and this copy writer offered to put an order to authorize him using computers at the unit under supervision for him to make his payments. HOSPITAL COURSE: As above DISCHARGE ASSESSMENT: Patient was not in danger to self or others, he was not suicidal not homicidal and not psychotic MENTAL STATUS EXAMINATION ON DISCHARGE: Patient is a at 21-year old male, who is alert, cooperative, dressed in hospital clothes, fairly groomed, with good hygiene and good eye contact. Speech is spontaneous and fluid. Language skills are normal. Thought processes including: Intact. Thought content focused on how to improve his life, how to get help for his codependency. Abstract reasoning, and computation: Fair. Description of associations: To good. Description of abnormal or psychotic thoughts: Denies suicidal ideation, denies homicidal ideation, denies auditory and visual hallucinations, denies thought delusions. Judgment: Improving. Insight: Improving. Orientation to oriented 3. Recent and remote memory: Intact. Attention span and concentration: Good. Language: Normal. Fund of knowledge: Adequate. Mood: Euthymic. Affect: Euthymic. MEDICATIONS ON DISCHARGE: Scheduled Atomoxetine HCl (Strattera) 40 Mg Cap, 40 MG PO QAM for ADHD, #7 Sertraline Hcl (Sertraline HCl) 25 Mg Tab, 75 MG PO QAM for depression, #21 Scheduled PRN Trazodone HCl (Trazodone HCl) 50 Mg Tab, 50 MG PO QHSP PRN for INSOMNIA, #10 PLAN/FOLLOWUP ARRANGEMENTS: * Medical * Medical Follow Up [facility] * Established With This Provider Yes * Therapist MS JACKSON * Date Jun 27, 2017 * Time 08:20 * The amount of time spent in the coordination of care for this patient was approximately 30 minutes. Vital Signs/I&Os Vital Signs Date Time Temp Pulse Resp B/P (MAP) Pulse Ox O2 Delivery O2 Flow Rate FiO2 06/20/17 06:50 97.5 69 14 115/65 (82) Room Air 06/16/17 18:00 97 Medications Scheduled Atomoxetine HCl (Strattera) 40 Mg Cap, 40 MG PO QAM for ADHD, #7 Sertraline Hcl (Sertraline HCl) 25 Mg Tab, 75 MG PO QAM for depression, #21 Scheduled PRN Trazodone HCl (Trazodone HCl) 50 Mg Tab, 50 MG PO QHSP PRN for INSOMNIA, #10 Allergies Coded Allergies: No Known Allergies (Unverified , 03/10/17) TEETEE MIRANDA MD Jun 20, 2017 10:37
== END 2017-06-20 10:30 | disposition home or self-care (01) | DRG 885 ==
LOC: EDBD 15:37 → M ED 15:37 → M ED INP 21:15 → M PSY 22:43
PROVIDERS: ADMIT Psychiatry & Neurology Psychiatry; ATTEND Psychiatry & Neurology Psychiatry
DX: F32.2 Major depressive disorder, single episode, severe without psychotic features (principal); R45.851 Suicidal ideations; F60.3 Borderline personality disorder; Z91.5 Personal history of self-harm; F17.210 Nicotine dependence, cigarettes, uncomplicated; Z79.899 Other long term (current) drug therapy